=== PATIENT | male | born 1985 | race Caucasian/White ===

== ENCOUNTER 2017-08-13 12:49 | Emergency (ER) | payer SELFPAY ==
[~2017-08-13] VITALS: Ht 177.8 cm; Wt 81.6 kg
[2017-08-13 12:49] VITALS: BP_SYST 167
[2017-08-13] MEDS ORDERED: INDOMETHACIN 25 MG CAPSULE(INDOCIN) PO ONE (14:00)
[2017-08-13 15:10] VITALS: BP_SYST 155
== END 2017-08-13 15:10 | disposition home or self-care (01) ==
LOC: SED 12:49
DX: M25.462 Effusion, left knee (principal); F17.210 Nicotine dependence, cigarettes, uncomplicated; Z71.6 Tobacco abuse counseling
CPT/HCPCS: 73564; 93971; 99284